=== PATIENT | male | born 1960 | race Native Hawaiian/Other Pacific Islander ===

== ENCOUNTER 2017-12-12 17:10 | Emergency (ER) | payer OTHER ==
[~2017-12-12] VITALS: Ht 172.7 cm; Wt 124.7 kg
[2017-12-12 17:38] LABS: PLATELET COUNT 180 K/uL (142-355)
[2017-12-12 17:48] LABS: POTASSIUM 3.8 mmol/L (3.6-5.2); SODIUM 139 mmol/L (136-145)
[2017-12-12 20:20] VITALS: BP 135/62; TEMP 97.8
[2017-12-12] MEDS ORDERED: BENZ1TAB43 PO (21:19)
[2017-12-12] MEDS ORDERED: [UNRECOGNIZED DRUG - OTHER] PO (21:24)
[2017-12-12] MEDS ORDERED: CLON0.5T36 PO (21:24)
[2017-12-12] MEDS ORDERED: COMBIGAN0.2 MG/0.5 OP (21:27)
[2017-12-12] MEDS ORDERED: MUCINEX600 MG PO (21:28)
[2017-12-12] MEDS ORDERED: QUET300T PO (21:30)
[2017-12-12] MEDS ORDERED: IBUPROFEN 200200 MG PO (21:33)
[2017-12-12] MEDS ORDERED: DONE5TAB PO (21:37)
[2017-12-12] MEDS ORDERED: ATOR20TA2 PO (21:38)
[2017-12-12] MEDS ORDERED: [UNRECOGNIZED DRUG - CODE] PO (21:41)
[2017-12-12] MEDS ORDERED: DOCU100C10 PO (21:42)
[2017-12-12] MEDS ORDERED: DIVA500T2 PO (21:49)
[2017-12-12] MEDS ORDERED: FIBER CAPS PO (21:50)
[2017-12-12] MEDS ORDERED: FISH OIL500 M1 PO (21:52)
[2017-12-12] MEDS ORDERED: ESCI10TA PO (21:53)
[2017-12-12] MEDS ORDERED: OMEPRAZOLE20 MG PO (21:56)
[2017-12-12] MEDS ORDERED: RISP50IN IM (22:04)
[2017-12-12] MEDS ORDERED: BENZTROPINE0.5 MG PO (22:11)
[2017-12-12] MEDS ORDERED: LATA0.00 OP (22:13)
== END 2017-12-12 20:20 | disposition other institution (70) ==
LOC: ED 17:10
DX: F20.89 Other schizophrenia (principal); F32.89 Other specified depressive episodes; K21.9 Gastro-esophageal reflux disease without esophagitis; F41.8 Other specified anxiety disorders; F03.90 Unspecified dementia, unspecified severity, without behavioral disturbance, psychotic disturbance, mood disturbance, and anxiety; Z04.6 Encounter for general psychiatric examination, requested by authority
CPT/HCPCS: 36415; 80053; 80061; 80307; 80320; 80329; 81000; 82607; 82746; 83036; 83735; 84100; 84134; 84439; 84443; 85027; 85610; 93005; 99285